=== PATIENT | female | born 1970 ===

== ENCOUNTER 2017-08-22 23:21 | Observation (INO) | payer OTHER, SELFPAY ==
[2017-08-22 23:41] VITALS: BMI 27.0
--- NOTE | 2017-08-22 23:57 | ED PDOC ---
HPI: Chest Pain Time Seen by Provider: 08/22/17 23:43 Chief Complaint (Nursing): Shortness Of Breath Chief Complaint (Provider): chest discomfort History Per: Patient History/Exam Limitations: no limitations Onset/Duration Of Symptoms: Days (3) Current Symptoms Are (Timing): Still Present Quality: Other ("pinching") Associated Symptoms: Dyspnea Exacerbating Factors: Other (laying down) Additional History Per: Patient Additional Complaint(s): 46 y/o female history of hypertension, hyperlipidemia presents with chest pain x 3 days. Patient describes pain as a "pinching" that is always present, and worsened with laying down. PAtient states when symptoms present it travels up in to her throat and she has a hard time taking a deep breath. Denies fever, headache, dizziness, palpitations, abdominal pain, leg pain/swelling, recent travel. normal cardiac cath 10/2014 Past Medical History Reviewed: Historical Data, Nursing Documentation, Vital Signs Vital Signs: Last Vital Signs Temp 98.6 F 08/22/17 23:43 Pulse 75 08/23/17 01:18 Resp 16 08/23/17 01:18 BP 115/71 08/23/17 01:18 Pulse Ox 100 08/23/17 01:18 - Medical History PMH: HTN, Hypercholesterolemia Denies: Chronic Kidney Disease - Surgical History Surgical History: Appendectomy - Family History Family History: States: Unknown Family Hx - Home Medications Home Medications: Ambulatory Orders Medication Instructions Recorded Docusate Sodium [Dulcolax Stool 1 tab PO BID 08/23/17 Softener] - Allergies Allergies/Adverse Reactions: Allergies Allergy/AdvReac Type Severity Reaction Status Date / Time No Known Allergies Allergy Verified 08/22/17 23:41 ARON Risk Score for UA/NSTEMI - ARON Risk Score Age > 64: NO 3 or more CAD Risk Factors: NO Known CAD (Stenosis greater than 50%): NO Aspirin use in past 7 days: NO Severe Angina: NO EKG ST changes greater than 0.5mm: NO Positive Cardiac Marker: NO ARON Score: 0 Risk %: 5% Review of Systems ROS Statement: Except As Marked, All Systems Reviewed And Found Negative Cardiovascular: Positive for: Chest Pain, Orthopnea Respiratory: Positive for: Shortness of Breath Physical Exam - Reviewed Nursing Documentation Reviewed: Yes Vital Signs Reviewed: Yes - Physical Exam Appears: Positive for: Well, Non-toxic, No Acute Distress Head Exam: Positive for: ATRAUMATIC, NORMAL INSPECTION, NORMOCEPHALIC Skin: Positive for: Normal Color Eye Exam: Positive for: Normal appearance ENT: Positive for: Normal ENT Inspection Cardiovascular/Chest: Positive for: Regular Rate, Rhythm Respiratory: Positive for: Normal Breath Sounds Gastrointestinal/Abdominal: Positive for: Normal Exam Back: Positive for: Normal Inspection Extremity: Positive for: Normal ROM Neurologic/Psych: Positive for: Alert, Oriented - Laboratory Results Result Diagrams: 08/22/17 23:57 08/23/17 00:05 - ECG ECG: Positive for: Viewed By Me (reviewed by ED attending) ECG Rhythm: Positive for: Left Bundle Branch Block (unchanged from previous EKG) O2 Sat by Pulse Oximetry: 100 Pulse Ox Interpretation: Normal - Radiology X-Ray: Viewed By Me X-Ray Interpretation: No Acute Disease - Progress ED Course And Treament: labs, ekg, chest xray, ASA PO Case discussed with FP resident on-call for placement in observation telemetry for chest pain to r/out ACS. Disposition - Clinical Impression Clinical Impression: Chest pain - Patient ED Disposition Is Patient to be Admitted: Yes - Disposition Disposition Time: 01:24 Condition: FAIR
[2017-08-23 00:06] LABS: BASO # 0.1 K/uL (0.0-0.2); BASO % 1.1 % (0.0-2.0); EOS # 0.1 K/uL (0.0-0.7); EOS % 1.7 % (0.0-4.0); HEMATOCRIT 34.8 % (34.0-47.0); LYMPH # 2.7 K/uL (1.0-4.3); LYMPH % 47.9 % (20.0-40.0); MEAN CELL VOLUME 77.5 fl (81.0-99.0); MEAN CORPUSCULAR HEMOGLOBIN 24.9 pg (27.0-31.0); MEAN CORPUSCULAR HGB CONC 32.1 g/dL (33.0-37.0); MEAN PLATELET VOLUME 9.1 fl (7.2-11.7); MONO # 0.5 K/uL (0.0-0.8); MONO % 9.1 % (0.0-10.0); NEUT # 2.3 K/uL (1.8-7.0); NEUT % 40.2 % (50.0-75.0); RED CELL DISTRIBUTION WIDTH 16.3 % (11.5-14.5); WHITE BLOOD COUNT 5.7 K/uL (4.8-10.8)
[2017-08-23 00:56] LABS: ALB/GLOB RATIO 1.2 (1.0-2.1); ALKALINE PHOSPHATASE 68 U/L (38-126); ALT/SGPT 32 U/L (9-52); AST/SGOT 27 U/L (14-36); BILIRUBIN,TOTAL 0.3 mg/dl (0.2-1.3); BLOOD UREA NITROGEN 19 mg/dl (7-17); CALCIUM 9.5 mg/dL (8.4-10.2); CARBON DIOXIDE 22 mmol/L (22-30); CHLORIDE 104 mmol/L (98-107); GFR AFRICAN-AMERICAN > 60; GLUCOSE,RANDOM 93 mg/dL (65-105); POTASSIUM 4.3 MMOL/L (3.6-5.0); SODIUM 138 mmol/l (132-148); TOTAL PROTEIN 8.2 G/DL (6.3-8.2)
--- NOTE | 2017-08-23 02:37 | CP.PCM.HP ---
Addendum entered and electronically signed by Collette Mariee MD 08/23/17 18:40: PMHx: positive for history of GI issues including chronic gastritis clarification for physical exam findings: chest wall tender to palpation A/P: regarding chronic constipation, dulcolax stopped, colace started Original Note: <Collette Mariee - Last Filed: 08/23/17 03:09> History of Present Illness - History of Present Illness History of Present Illness: 46yo F with PMHx LAURENCE, HLD, and chronic gastritis admitted for chest pain. Chest pain x3 days, constant, no radiation, sharp, 7/10, located in left sternal/rib area, reproducible. Denies fever, chills, nausea, vomiting, palpitations, or diaphoresis, dyspnea, dysuria, hematuria, hematochezia, hemoptysis. Last took Fe months ago, once daily. Statin stopped by PCP more than 1 year ago. Denies FHx cardiac history. prior cardiac workup 10/2014 for new LBBB showed negative troponin, non significant cardiac cath, and ECHO with LVEF 55%. PMHx: Hyperlipidemaia PSurgHx: Appendectomy, Vericose vein procedure (2013) Social Hx: Denies ETOH, smoking, drugs Family Hx: Mother-HLD Meds: checked in [facility] Allergies: NKDA PCP: [facility] ED course: VSS CBC, CMP, PT, PTT, troponin, proBNP EKG CXR ASA 325mg x1 tylenol 650mg X1 Present on Admission - Present on Admission Any Indicators Present on Admission: No Review of Systems - Review of Systems All systems: reviewed and no additional remarkable complaints except - Cardiovascular Cardiovascular: Chest Pain Past Patient History - Infectious Disease Hx of Infectious Diseases: None - Past Medical History & Family History Past Medical History?: Yes - Past Social History Smoking Status: Never Smoked - CARDIAC Hx Hypercholesterolemia: Yes Hx Hypertension: Yes - PULMONARY Hx Respiratory Disorders: No - NEUROLOGICAL Hx Neurological Disorder: No - HEENT Hx HEENT Problems: No - RENAL Hx Chronic Kidney Disease: No - ENDOCRINE/METABOLIC Hx Endocrine Disorders: No - HEMATOLOGICAL/ONCOLOGICAL Hx Blood Disorders: No - INTEGUMENTARY Hx Dermatological Problems: No - MUSCULOSKELETAL/RHEUMATOLOGICAL Hx Musculoskeletal Disorders: No - GASTROINTESTINAL Hx Gastrointestinal Disorders: No - GENITOURINARY/GYNECOLOGICAL Hx Genitourinary Disorders: No - PSYCHIATRIC Hx Psychophysiologic Disorder: No Hx Emotional Abuse: No Hx Physical Abuse: No Hx Substance Use: No - SURGICAL HISTORY Hx Appendectomy: Yes - ANESTHESIA Hx Anesthesia: Yes Hx Anesthesia Reactions: No Hx Malignant Hyperthermia: No Meds Allergies/Adverse Reactions: Allergies Allergy/AdvReac Type Severity Reaction Status Date / Time No Known Allergies Allergy Verified 08/22/17 23:41 Physical Exam - Constitutional Appears: Non-toxic, No Acute Distress - Head Exam Head Exam: ATRAUMATIC, NORMAL INSPECTION, NORMOCEPHALIC - Eye Exam Eye Exam: EOMI, Normal appearance - ENT Exam ENT Exam: Mucous Membranes Moist - Neck Exam Neck exam: Positive for: Full Rom, Normal Inspection - Respiratory Exam Respiratory Exam: Clear to Auscultation Bilateral, NORMAL BREATHING PATTERN - Cardiovascular Exam Cardiovascular Exam: REGULAR RHYTHM. absent: Systolic Murmur Additional comments: chest wall TTP along sternum and left ribs - GI/Abdominal Exam GI & Abdominal Exam: Normal Bowel Sounds, Soft - Extremities Exam Extremities exam: Positive for: normal inspection. Negative for: calf tenderness, pedal edema - Back Exam Back exam: NORMAL INSPECTION. absent: vertebral tenderness - Neurological Exam Neurological exam: Alert, Oriented x3 - Skin Skin Exam: Dry, Warm Results - Vital Signs Recent Vital Signs: Last Vital Signs Temp 98.6 F 08/22/17 23:43 Pulse 75 08/23/17 01:18 Resp 16 08/23/17 01:18 BP 115/71 08/23/17 01:18 Pulse Ox 100 08/23/17 01:25 - Labs Result Diagrams: 08/22/17 23:57 08/23/17 00:05 Labs: Laboratory Results - last 24 hr 08/22/17 08/23/17 23:57 00:05 WBC 5.7 D RBC 4.48 Hgb 11.2 L Hct 34.8 MCV 77.5 L D MCH 24.9 L MCHC 32.1 L RDW 16.3 H Plt Count 200 MPV 9.1 Neut % (Auto) 40.2 L Lymph % (Auto) 47.9 H Pickett % (Auto) 9.1 Eos % (Auto) 1.7 Baso % (Auto) 1.1 Neut # 2.3 Lymph # 2.7 Pickett # 0.5 Eos # 0.1 Baso # 0.1 Sodium 138 Potassium 4.3 Chloride 104 Carbon Dioxide 22 Anion Gap 16 BUN 19 H Creatinine 0.8 Est GFR ( Amer) > 60 Est GFR (Non-Af Amer) > 60 Random Glucose 93 Calcium 9.5 Total Bilirubin 0.3 AST 27 ALT 32 Alkaline Phosphatase 68 Troponin I < 0.0120 NT-Pro-B Natriuret Pep 38.4 Total Protein 8.2 Albumin 4.5 Globulin 3.7 Albumin/Globulin Ratio 1.2 Assessment & Plan - Assessment and Plan (Free Text) Assessment: 46yo F with PMHx LAURENCE, HLD, and chronic gastritis admitted for chest pain chest pain r/o ACS, suspect costochondritis EKG old LBBB 2014 negative cardiac cath WNL 11/26/14 ECHO LVEF 55% ASA 81 nitro SL O2 prn lipid panel, Hgba1c trend troponin Iron def anemia iron panel c/w Fe supplements and Dulcolax HLD not currently taking statin lipid panel gastritis c/w PPI DVT ppx SCDs for now, ambulating Decision To Admit - Pt Status Changed To: Hospital Disposition Of: Observation - . Bed Request Type: Telemetry Admitting Physician: Syl Ayers <Syl Ayers - Last Filed: 08/24/17 09:41> Results - Vital Signs Recent Vital Signs: Last Vital Signs Temp 97.6 F 08/23/17 16:50 Pulse 68 08/23/17 16:50 Resp 20 08/23/17 16:50 BP 99/62 L 08/23/17 16:50 Pulse Ox 99 08/23/17 16:50 - Labs Result Diagrams: 08/23/17 05:40 08/23/17 05:40 Labs: Laboratory Results - last 24 hr 08/23/17 08/23/17 08/23/17 05:40 05:40 09:30 Sodium 140 Potassium 3.6 Chloride 107 Carbon Dioxide 22 Anion Gap 15 BUN 16 Creatinine 0.7 Est GFR ( Amer) > 60 Est GFR (Non-Af Amer) > 60 Random Glucose 87 Hemoglobin A1c 5.7 Calcium 8.8 Phosphorus 4.9 H Magnesium 1.9 Troponin I < 0.0120 Attending/Attestation - Attestation I have personally seen and examined this patient.: Yes I have fully participated in the care of the patient.: Yes I have reviewed all pertinent clinical information: Yes
[2017-08-23 06:11] LABS: HEMATOCRIT 33.9 % (34.0-47.0); MEAN CELL VOLUME 77.1 fl (81.0-99.0); MEAN CORPUSCULAR HGB CONC 32.5 g/dL (33.0-37.0); RED CELL DISTRIBUTION WIDTH 16.2 % (11.5-14.5); WHITE BLOOD COUNT 4.6 K/uL (4.8-10.8)
[2017-08-23 07:20] LABS: THYROID STIMULATING HORMONE 1.49 mIU/ML (0.46-4.68)
[2017-08-23 07:29] LABS: IRON 31 ug/dL (37-170)
[2017-08-23 08:58] LABS: CHOLESTEROL 320 mg/dL (0-199)
[2017-08-23] MEDS ORDERED: Pantoprazole 20 mg EC Tab PO SCH (09:00)
[2017-08-23 09:48] LABS: BLOOD UREA NITROGEN 16 mg/dl (7-17); CALCIUM 8.8 mg/dL (8.4-10.2); CARBON DIOXIDE 22 mmol/L (22-30); CHLORIDE 107 mmol/L (98-107); GFR AFRICAN-AMERICAN > 60; GLUCOSE,RANDOM 87 mg/dL (65-105); MAGNESIUM 1.9 MG/DL (1.6-2.3); PHOSPHOROUS 4.9 mg/dl (2.5-4.5); POTASSIUM 3.6 MMOL/L (3.6-5.0); SODIUM 140 mmol/l (132-148)
--- NOTE | 2017-08-23 14:21 | RAD ---
HISTORY: chest pain COMPARISON: Comparison made with prior study dated 11/25/2014 TECHNIQUE: Chest PA and lateral FINDINGS: LUNGS: No active pulmonary disease. PLEURA: No significant pleural effusion identified. No pneumothorax apparent. CARDIOVASCULAR: Normal. OSSEOUS STRUCTURES: No significant abnormalities. VISUALIZED UPPER ABDOMEN: Normal. OTHER FINDINGS: None. IMPRESSION: No acute infiltrates.
--- NOTE | 2017-08-23 15:52 | CP.PCM.DIS ---
<Levar Meyer - Last Filed: 08/23/17 16:11> Provider - Provider Date of Admission: 08/23/17 01:19 Attending physician: Jolanta Lou MD Time Spent in preparation of Discharge (in minutes): 35 Diagnosis - Discharge Diagnosis (1) Atypical chest pain Status: Acute Hospital Course - Lab Results Lab Results: Most Recent Lab Values WBC 4.6 K/uL (4.8-10.8) L 08/23/17 05:40 RBC 4.39 Mil/uL (3.80-5.20) 08/23/17 05:40 Hgb 11.0 g/dL (12.0-16.0) L 08/23/17 05:40 Hct 33.9 % (34.0-47.0) L 08/23/17 05:40 MCV 77.1 fl (81.0-99.0) L 08/23/17 05:40 MCH 25.0 pg (27.0-31.0) L 08/23/17 05:40 MCHC 32.5 g/dL (33.0-37.0) L 08/23/17 05:40 RDW 16.2 % (11.5-14.5) H 08/23/17 05:40 Plt Count 198 K/uL (130-400) 08/23/17 05:40 MPV 9.1 fl (7.2-11.7) 08/22/17 23:57 Neut % (Auto) 40.2 % (50.0-75.0) L 08/22/17 23:57 Lymph % (Auto) 47.9 % (20.0-40.0) H 08/22/17 23:57 Cocke % (Auto) 9.1 % (0.0-10.0) 08/22/17 23:57 Eos % (Auto) 1.7 % (0.0-4.0) 08/22/17 23:57 Baso % (Auto) 1.1 % (0.0-2.0) 08/22/17 23:57 Neut # 2.3 K/uL (1.8-7.0) 08/22/17 23:57 Lymph # 2.7 K/uL (1.0-4.3) 08/22/17 23:57 Cocke # 0.5 K/uL (0.0-0.8) 08/22/17 23:57 Eos # 0.1 K/uL (0.0-0.7) 08/22/17 23:57 Baso # 0.1 K/uL (0.0-0.2) 08/22/17 23:57 Sodium 140 mmol/l (132-148) 08/23/17 05:40 Potassium 3.6 MMOL/L (3.6-5.0) 08/23/17 05:40 Chloride 107 mmol/L (98-107) 08/23/17 05:40 Carbon Dioxide 22 mmol/L (22-30) 08/23/17 05:40 Anion Gap 15 (10-20) 08/23/17 05:40 BUN 16 mg/dl (7-17) 08/23/17 05:40 Creatinine 0.7 mg/dL (0.7-1.2) 08/23/17 05:40 Est GFR ( Amer) > 60 08/23/17 05:40 Est GFR (Non-Af Amer) > 60 08/23/17 05:40 Random Glucose 87 mg/dL (65-105) 08/23/17 05:40 Hemoglobin A1c 5.7 % (4.2-6.5) 08/23/17 05:40 Calcium 8.8 mg/dL (8.4-10.2) 08/23/17 05:40 Phosphorus 4.9 mg/dl (2.5-4.5) H 08/23/17 05:40 Magnesium 1.9 MG/DL (1.6-2.3) 08/23/17 05:40 Iron 31 ug/dL (37-170) L 08/23/17 05:40 TIBC 399 ug/dL (250-450) 08/23/17 05:40 % Saturation 8 % (20-55) L 08/23/17 05:40 Ferritin 4.7 ng/Ml (6.24-137.0) L 08/23/17 05:40 Total Bilirubin 0.3 mg/dl (0.2-1.3) 08/23/17 00:05 AST 27 U/L (14-36) 08/23/17 00:05 ALT 32 U/L (9-52) 08/23/17 00:05 Alkaline Phosphatase 68 U/L (38-126) 08/23/17 00:05 Troponin I < 0.0120 ng/mL (0.00-0.120) 08/23/17 09:30 NT-Pro-B Natriuret Pep 38.4 pg/ml (0-450) 08/23/17 00:05 Total Protein 8.2 G/DL (6.3-8.2) 08/23/17 00:05 Albumin 4.5 g/dL (3.5-5.0) 08/23/17 00:05 Globulin 3.7 gm/dL (2.2-3.9) 08/23/17 00:05 Albumin/Globulin Ratio 1.2 (1.0-2.1) 08/23/17 00:05 Triglycerides 154 mg/DL (0-149) H 08/23/17 05:40 Cholesterol 320 mg/dL (0-199) H 08/23/17 05:40 LDL Cholesterol Direct 193 mg/dL (0-129) H 08/23/17 05:40 HDL Cholesterol 73 MG/DL (30-70) H 08/23/17 05:40 TSH 3rd Generation 1.49 mIU/ML (0.46-4.68) 08/23/17 05:40 - Hospital Course Hospital Course: 46 y/o female with pmhx of HLD, LAURENCE and chronic gastritis was admitted for chest pain. Work up was negative for any myocardial injury. Troponin was trended and remained negative. Pt reports pain improved during overnight stay. After an uneventful hospital stay the pt was discharged in stable condition. Meds on DC: -Atorvastatin 40mg QD -Ferrous Sulfate 325mg QD -Protonix 20mg QD F/U appt scheduled at [facility] for Sunday 09/[address] Meyer Discharge Exam - Head Exam Head Exam: ATRAUMATIC, NORMAL INSPECTION, NORMOCEPHALIC Discharge Plan - Discharge Medications Prescriptions: Atorvastatin [Lipitor] 40 mg PO DAILY #30 tab Ferrous Sulfate [Feosol] 325 mg PO BID #30 tab Pantoprazole [Protonix EC Tab] 20 mg PO DAILY #30 ect - Follow Up Plan Condition: FAIR Disposition: HOME/ ROUTINE Instructions: Myocardial Infarction (DC), Chest Pain (DC), Costochondritis (DC) Additional Instructions: please follow up with your PCP, on Saturday09/02/17 @11am clinic address [address] [place] [address]. [facility] <Syl Ayers - Last Filed: 08/24/17 09:39> Provider - Provider Date of Admission: 08/23/17 01:19 Attending physician: Jolanta Lou MD Hospital Course - Lab Results Lab Results: Most Recent Lab Values WBC 4.6 K/uL (4.8-10.8) L 08/23/17 05:40 RBC 4.39 Mil/uL (3.80-5.20) 08/23/17 05:40 Hgb 11.0 g/dL (12.0-16.0) L 08/23/17 05:40 Hct 33.9 % (34.0-47.0) L 08/23/17 05:40 MCV 77.1 fl (81.0-99.0) L 08/23/17 05:40 MCH 25.0 pg (27.0-31.0) L 08/23/17 05:40 MCHC 32.5 g/dL (33.0-37.0) L 08/23/17 05:40 RDW 16.2 % (11.5-14.5) H 08/23/17 05:40 Plt Count 198 K/uL (130-400) 08/23/17 05:40 MPV 9.1 fl (7.2-11.7) 08/22/17 23:57 Neut % (Auto) 40.2 % (50.0-75.0) L 08/22/17 23:57 Lymph % (Auto) 47.9 % (20.0-40.0) H 08/22/17 23:57 Cocke % (Auto) 9.1 % (0.0-10.0) 08/22/17 23:57 Eos % (Auto) 1.7 % (0.0-4.0) 08/22/17 23:57 Baso % (Auto) 1.1 % (0.0-2.0) 08/22/17 23:57 Neut # 2.3 K/uL (1.8-7.0) 08/22/17 23:57 Lymph # 2.7 K/uL (1.0-4.3) 08/22/17 23:57 Cocke # 0.5 K/uL (0.0-0.8) 08/22/17 23:57 Eos # 0.1 K/uL (0.0-0.7) 08/22/17 23:57 Baso # 0.1 K/uL (0.0-0.2) 08/22/17 23:57 Sodium 140 mmol/l (132-148) 08/23/17 05:40 Potassium 3.6 MMOL/L (3.6-5.0) 08/23/17 05:40 Chloride 107 mmol/L (98-107) 08/23/17 05:40 Carbon Dioxide 22 mmol/L (22-30) 08/23/17 05:40 Anion Gap 15 (10-20) 08/23/17 05:40 BUN 16 mg/dl (7-17) 08/23/17 05:40 Creatinine 0.7 mg/dL (0.7-1.2) 08/23/17 05:40 Est GFR ( Amer) > 60 08/23/17 05:40 Est GFR (Non-Af Amer) > 60 08/23/17 05:40 Random Glucose 87 mg/dL (65-105) 08/23/17 05:40 Hemoglobin A1c 5.7 % (4.2-6.5) 08/23/17 05:40 Calcium 8.8 mg/dL (8.4-10.2) 08/23/17 05:40 Phosphorus 4.9 mg/dl (2.5-4.5) H 08/23/17 05:40 Magnesium 1.9 MG/DL (1.6-2.3) 08/23/17 05:40 Iron 31 ug/dL (37-170) L 08/23/17 05:40 TIBC 399 ug/dL (250-450) 08/23/17 05:40 % Saturation 8 % (20-55) L 08/23/17 05:40 Ferritin 4.7 ng/Ml (6.24-137.0) L 08/23/17 05:40 Total Bilirubin 0.3 mg/dl (0.2-1.3) 08/23/17 00:05 AST 27 U/L (14-36) 08/23/17 00:05 ALT 32 U/L (9-52) 08/23/17 00:05 Alkaline Phosphatase 68 U/L (38-126) 08/23/17 00:05 Troponin I < 0.0120 ng/mL (0.00-0.120) 08/23/17 09:30 NT-Pro-B Natriuret Pep 38.4 pg/ml (0-450) 08/23/17 00:05 Total Protein 8.2 G/DL (6.3-8.2) 08/23/17 00:05 Albumin 4.5 g/dL (3.5-5.0) 08/23/17 00:05 Globulin 3.7 gm/dL (2.2-3.9) 08/23/17 00:05 Albumin/Globulin Ratio 1.2 (1.0-2.1) 08/23/17 00:05 Triglycerides 154 mg/DL (0-149) H 08/23/17 05:40 Cholesterol 320 mg/dL (0-199) H 08/23/17 05:40 LDL Cholesterol Direct 193 mg/dL (0-129) H 08/23/17 05:40 HDL Cholesterol 73 MG/DL (30-70) H 08/23/17 05:40 TSH 3rd Generation 1.49 mIU/ML (0.46-4.68) 08/23/17 05:40 Attending/Attestation - Attestation I have personally seen and examined this patient.: Yes I have fully participated in the care of the patient.: Yes I have reviewed all pertinent clinical information, including history, physical exam and plan: Yes Notes (Text): 08/24/17 09:38 PATIENT SEEN AND EXAMINED. CASE DISCUSSED WITH RESIDENT. AGREE WITH FINDINGS AND PLAN. DISCHARGE TO OUTPATIENT FOLLOW UP.
[2017-08-23 16:50] VITALS: BP 99/62; PULSE 68; RESP 20; TEMP 97.6; O2SAT 99
== END 2017-08-23 15:45 | disposition home or self-care (01) ==
LOC: H.ER 23:21 → H.ERHOLD 08-23 01:19 → H.TEL 08-23 02:34
PROVIDERS: ADMIT Family Medicine Geriatric Medicine; ATTEND Family Medicine Geriatric Medicine
DX: R07.89 Other chest pain (principal); K29.50 Unspecified chronic gastritis without bleeding; D50.9 Iron deficiency anemia, unspecified; I10 Essential (primary) hypertension; E78.5 Hyperlipidemia, unspecified; K59.09 Other constipation; Z90.49 Acquired absence of other specified parts of digestive tract
CPT/HCPCS: 71020; 80053; 80061; 81025; 82728; 83036; 83540; 83550; 83735; 83880; 84100; 84443; 84484; 85025; 85027; 87389; 99285; G0378; J1756

== ENCOUNTER 2018-10-28 11:15 | Emergency (ER) | payer SELFPAY ==
[2018-10-28 11:15] VITALS: BMI 27.0
[2018-10-28 11:36] VITALS: BP 109/69; PULSE 70; RESP 16; TEMP 98.1; O2SAT 99
--- NOTE | 2018-10-28 12:32 | ED PDOC ---
Lower Extremity Pain/Injury Time Seen by Provider: 10/28/18 12:21 Chief Complaint (Nursing): Lower Extremity Problem/Injury Chief Complaint (Provider): Right Knee Pain History Per: Patient, Family (daughter, who was interpreting) History/Exam Limitations: no limitations Onset/Duration Of Symptoms: Other (chronic pain, worse x4 days) Current Symptoms Are (Timing): Still Present Additional Complaint(s): 47 year old female presents to the ED for evaluation of chronic right knee pain, worse the last four days. Patient had an MRI on 08/07/2018 which revealed ACL and medial meniscus tears, and has been under the care of her PMD noted below. She notes worsening pain but has not been able to see her PMD, so came to the ED for temporary pain relief. Otherwise, patient denies any falls, twists, sprains, blunt trauma, etc. since the MRI date. PMD: Jane Alexander Past Medical History Reviewed: Historical Data, Nursing Documentation, Vital Signs Vital Signs: Last Vital Signs Temp 98.1 F 10/28/18 11:34 Pulse 70 10/28/18 11:34 Resp 16 10/28/18 11:34 BP 109/69 10/28/18 11:34 Pulse Ox 99 10/28/18 11:34 - Medical History PMH: HTN, Hypercholesterolemia Denies: Chronic Kidney Disease - Surgical History Surgical History: Appendectomy - Family History Family History: States: Unknown Family Hx - Social History Current smoker - smoking cessation education provided: No Alcohol: None Drugs: Denies - Home Medications Home Medications: Ambulatory Orders Medication Instructions Recorded RX: Atorvastatin [Lipitor] 40 mg PO DAILY #30 tab 08/23/17 RX: Docusate Sodium [Dulcoease] 1 tab PO BID 08/23/17 RX: Ferrous Sulfate [Feosol] 325 mg PO BID #30 tab 08/23/17 RX: Pantoprazole [Protonix EC Tab] 20 mg PO DAILY #30 ect 08/23/17 - Allergies Allergies/Adverse Reactions: Allergies Allergy/AdvReac Type Severity Reaction Status Date / Time No Known Allergies Allergy Verified 08/22/17 23:41 Wells Criteria for PE - Wells Criteria for Pulmonary Embolism Clinical Signs and Symptoms of DVT: No P.E is #1 Diagnosis, or Equally Likely: No Heart Rate >100: No Immobilization at least 3 days;Surgery previous 4 weeks: No Previous, objectively diagnosed PE or DVT: No Hemoptysis: No Malignancy w/treatment within 6 months, or palliative: No Total Score: 0 Review of Systems ROS Statement: Except As Marked, All Systems Reviewed And Found Negative Constitutional: Negative for: Other (falls, injury, blunt trauma, sprains, twists) Musculoskeletal: Positive for: Leg Pain (right knee) Physical Exam - Reviewed Nursing Documentation Reviewed: Yes Vital Signs Reviewed: Yes - Physical Exam Appears: Positive for: No Acute Distress Skin: Positive for: Normal Color, Warm Cardiovascular/Chest: Positive for: Regular Rate, Rhythm Respiratory: Positive for: Normal Breath Sounds. Negative for: Respiratory Distress Extremity: Positive for: Other (right LE: positive posterior and anterior drawer signs; positive apley grind test of medial aspect of knee with exterior rotation) Neurologic/Psych: Positive for: Alert, Oriented - ECG O2 Sat by Pulse Oximetry: 99 (RA) Pulse Ox Interpretation: Normal Medical Decision Making Medical Decision Making: Time: 1222 Initial Impression: chronic right knee pain in setting of known ACL and medial meniscus tear Initial Plan: --Toradol 60mg IM --Tylenol 650mg PO --Patient informed only temporary pain relief can be given in the ED, and that chronic pain issues will be further treated by a specialist or her PMD, which she is to follow up with. An ortho referral will be given upon discharge. ----- Scribe Attestation: Documented by Julita Richey, acting as a scribe for Brandon Hull PA-C. Provider Scribe Attestation: All medical record entries made by the Scribe were at my direction and personally dictated by me. I have reviewed the chart and agree that the record accurately reflects my personal performance of the history, physical exam, medical decision making, and the department course for this patient. I have also personally directed, reviewed, and agree with the discharge instructions and disposition. Disposition - Clinical Impression Clinical Impression: Knee pain Doctor Will See Patient In The: Office Counseled Patient/Family Regarding: Diagnosis, Need For Followup, Rx Given - Disposition Referrals: [facility] [Outside] [facility] [place] [Outside] Disposition: Routine/Home Disposition Time: 12:52 Condition: STABLE Additional Instructions: Pt should follow up with her PMD and also has been given an orthopedic follow up Pt should continue to take Ibuprofen 600mg every six hours and acetaminophen 650mg every eight hours Instructions: Chronic Knee Pain, Chronic Knee Pain (DC) Forms: [facility] (Kiswahili), [facility] (Macedonian) Print Language: GREEK
== END 2018-10-28 13:37 | disposition home or self-care (01) ==
LOC: H.ER 11:15
DX: M25.561 Pain in right knee (principal)
CPT/HCPCS: 96372; 99282; J1885